=== PATIENT | male | born 1995 ===

== ENCOUNTER 2017-08-08 20:39 | Emergency (ER) | payer SELFPAY ==
[2017-08-08 20:47] VITALS: BP 123/73; PULSE 73; TEMP 99; O2SAT 98
[2017-08-08] MEDS ORDERED: Tetanus/Diphtheria Toxoids 0.5 ml Syringe IM ONE ×2 (21:06→21:19)
[2017-08-08] MEDS ORDERED: Bacitracin 500 Units/gm Oint Foilpak UD ONE (21:19)
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
[2017-08-08 21:53] VITALS: RESP 20
== END 2017-08-08 21:53 | disposition home or self-care (01) ==
LOC: C.ER 20:39
DX: S41.119A Laceration without foreign body of unspecified upper arm, initial encounter (principal); X99.1XXA Assault by knife, initial encounter; Y92.410 Unspecified street and highway as the place of occurrence of the external cause; Z23 Encounter for immunization

== ENCOUNTER 2017-08-24 22:39 | Emergency (ER) | payer SELFPAY ==
[2017-08-24 23:07] VITALS: BP 117/78; PULSE 71; TEMP 97.9; O2SAT 98
[2017-08-24] MEDS ORDERED: Bacitracin 500 Units/gm Oint Foilpak UD TOP ONE (23:43)
[2017-08-24] MEDS ORDERED: Bacitracin 500 Units/gm Oint Foilpak UD ONE (23:46)
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
[2017-08-25 00:02] VITALS: RESP 20
== END 2017-08-25 | disposition home or self-care (01) ==
LOC: C.ER 22:39
DX: Z48.02 Encounter for removal of sutures (principal); L08.89 Other specified local infections of the skin and subcutaneous tissue; S41.101D Unspecified open wound of right upper arm, subsequent encounter; L08.9 Local infection of the skin and subcutaneous tissue, unspecified; W45.8XXD Other foreign body or object entering through skin, subsequent encounter

== ENCOUNTER 2017-09-20 08:41 | Emergency (ER) | payer MEDICAID, OTHER ==
[2017-09-20 09:03] VITALS: RESP 16
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
[2017-09-20] MEDS ORDERED: Tetracaine 0.5% Ophth 2 ML BOTTLE OS STA (09:20)
[2017-09-20] MEDS ORDERED: Tetracaine 0.5% Ophth (OR ONLY) ONE (09:27)
[2017-09-20] MEDS ORDERED: Fluorescein 1 mg Ophthalmic Strip ONE (09:27)
[2017-09-20 10:18] VITALS: BP 122/70; PULSE 88; TEMP 98.2
[2017-09-21 21:26] VITALS: O2SAT 99
== END 2017-09-20 10:17 | disposition home or self-care (01) ==
LOC: C.ER 08:41
DX: H20.9 Unspecified iridocyclitis (principal)

== ENCOUNTER 2018-04-05 03:32 | Emergency (ER) | payer MEDICAID ==
[2018-04-05 03:49] VITALS: BP 127/65; TEMP 98.6; O2SAT 100
[2018-04-05] MEDS ORDERED: Lidocaine 1% Inj (20ml) INFIL STA (04:12)
[2018-04-05] MEDS ORDERED: Lidocaine Hydrochloride 10 ML INJ ONE (04:19)
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
[2018-04-05 04:58] VITALS: PULSE 80; RESP 14
--- NOTE | 2018-04-05 11:04 | RAD ---
Right hand three views History: Thumb pain. Comparison: None available. Findings: Complete dislocation of the 1st carpometacarpal joint space with radial sided subluxation of the proximal phalanx in relationship to the trapezium. Impression: Complete dislocation of the 1st carpometacarpal joint space with radial sided subluxation of the proximal phalanx in relationship to the trapezium.
--- NOTE | 2018-04-05 11:06 | RAD ---
Right hand three views History: Postreduction. Comparison: X-ray dated 04/05/2018 Findings: Status post reduction of the 1st carpometacarpal joint space. Impression: Status post reduction of the 1st carpometacarpal joint space.
== END 2018-04-05 04:58 | disposition home or self-care (01) ==
LOC: C.ER 03:32
DX: S63.044A Dislocation of carpometacarpal joint of right thumb, initial encounter (principal); Y04.0XXA Assault by unarmed brawl or fight, initial encounter; Y92.9 Unspecified place or not applicable